=== PATIENT | male | born 1980 | race African-American/Black ===

== ENCOUNTER 2017-11-13 11:19 | Emergency (ER) | payer OTHER ==
[~2017-11-13] VITALS: Ht 170.2 cm; Wt 83.0 kg
[2017-11-13 11:20] VITALS: BP 171/100; TEMP 101.1
[2017-11-13] MEDS ORDERED: GRALISE300 MG (11:33)
[2017-11-13] MEDS ORDERED: BACTRIM1 TAB PO (11:33)
[2017-11-13] MEDS ORDERED: AMLODIPINE BESYLATE PO (11:34)
== END 2017-11-13 11:48 | disposition home or self-care (01) ==
LOC: ED 11:19
DX: N48.21 Abscess of corpus cavernosum and penis (principal)
CPT/HCPCS: 96372; 99282; J0696

== ENCOUNTER 2017-11-29 13:09 | Emergency (ER) | payer OTHER ==
[~2017-11-29] VITALS: Ht 170.2 cm; Wt 83.0 kg
[~2017-11-29 13:09] MED LIST: AMLODIPINE BESYLATE PO; BACTRIM1 TAB PO; GRALISE300 MG
[2017-11-29 13:11] VITALS: TEMP 99.3
[2017-11-29 13:58] VITALS: BP 148/72
== END 2017-11-29 13:58 | disposition home or self-care (01) ==
LOC: ED 13:09
PROC: 0VQ Male Reproductive System, Repair (ICD-10-PCS; principal; 2017-11-29)
DX: I86.1 Scrotal varices (principal)
CPT/HCPCS: 99283

== ENCOUNTER 2017-11-29 23:34 | Emergency (ER) | payer OTHER ==
[~2017-11-29] VITALS: Ht 170.2 cm; Wt 83.0 kg
[2017-11-30 00:32] VITALS: BP 159/96; TEMP 98.1
== END 2017-11-30 00:33 | disposition home or self-care (01) ==
LOC: ED 23:34
DX: I86.1 Scrotal varices (principal); N50.1 Vascular disorders of male genital organs
CPT/HCPCS: 99283

== ENCOUNTER 2017-12-03 16:11 | Emergency (ER) | payer OTHER ==
[~2017-12-03] VITALS: Ht 170.2 cm; Wt 83.0 kg
[2017-12-03 16:50] VITALS: BP 132/91; TEMP 97.7
== END 2017-12-03 16:50 | disposition home or self-care (01) ==
LOC: ED 16:11
DX: L76.22 Postprocedural hemorrhage of skin and subcutaneous tissue following other procedure (principal)